=== PATIENT | female | born 1970 | race Caucasian/White ===

== ENCOUNTER 2020-07-29 11:47 | Inpatient (IN) | payer OTHER ==
[~2020-07-29] VITALS: Ht 157.5 cm; Wt 46.5 kg
--- NOTE | 2020-07-29 12:00 | NUR ---
SORE THROAT AND DIFFICULTY SWALLOWING. FOUND TO HAVE ENLARGED THYROID AT [facility] AND TRANSFERRED TO [facility]
--- NOTE | 2020-07-29 12:31 | NUR ---
ERP TO THE BS AT THIS TIME
--- NOTE | 2020-07-29 13:52 | NUR ---
PT TO BE ADMIT AND IS AWARE
--- NOTE | 2020-07-29 14:44 | NUR ---
[facility] TO THE BS
--- NOTE | 2020-07-29 14:59 | NUR ---
ASSUMED CARE OF PATIENT. REPORT GIVEN TO FROM ALEJANDRO KRAUS. [facility] AT BEDSIDE. CALL LIGHT IN PLACE. WILL CONTNIUE TO MONITOR.
[2020-07-29] MEDS ORDERED: POLYETHYLENE GLYCOL 17 GM PACKET PO PRN (15:30)
[2020-07-29] MEDS ORDERED: MELATONIN 5 MG TABLET PO PRN (15:30)
[2020-07-29] MEDS ORDERED: ACETAMINOPHEN 325 MG TABLET PO PRN (15:30)
[2020-07-29] MEDS ORDERED: hydrALAzine 20 MG/ML, 1ML IVPush PRN (15:30)
[2020-07-29] MEDS ORDERED: ONDANSETRON ODT 4 MG PO PRN (15:30)
[2020-07-29] MEDS ORDERED: HYDROcodone/APAP 5/325 TABLET PO PRN (15:30)
[2020-07-29] MEDS ORDERED: DOCUSATE 100 MG CAPSULE PO PRN (15:30)
--- NOTE | 2020-07-29 15:50 | NUR ---
BREAK RN: PT AMBULATED TO BATHROOM. VS STABLE. NO ACUTE DISTRESS NOTED. [facility] IN ROOM. CALL LIGHT IN PLACE. PROSPECTING DRILLER ON. NSR NOTED.
[2020-07-29] MEDS ORDERED: ENOXAPARIN 40 MG/0.4 ML ONE (15:55)
[2020-07-29] MEDS: ENOXAPARIN 40 MG/0.4 ML SQ SCH (16:10)
--- NOTE | 2020-07-29 16:14 | NUR ---
PT TALKING WITH AT BEDSIDE. BINGO MANAGER ON. NSR NOTED. CALL LIGHT IN PLACE. NO ACUTE DISTRESS NOTED. WILL CONTINUE TO MONITOR.
[2020-07-29] MEDS: LACTATED RINGERS 1,000 ML IV SCH (16:27)
[2020-07-29] MEDS ORDERED: IBUPROFEN 600 MG TABLET PO PRN (16:30)
--- NOTE | 2020-07-29 18:01 | NUR ---
CALLED [facility] PROVIDER, VERIFIED DOSE AND MEDICATION: METHIMAZOLE WITH MD. MD WANTS MEDICATION GIVEN.
[2020-07-29] MEDS ORDERED: IODINE PO SCH ×2 (19:00→19:16)
[2020-07-29] MEDS ORDERED: POTASSIUM IODIDE PO SCH ×2 (19:00→19:16)
[2020-07-29 19:39] VITALS: BP 121/79
[2020-07-29 20:06] VITALS: BP 120/78
[2020-07-29 21:05] VITALS: BP 125/78
[2020-07-29] MEDS: PROPRANOLOL 60 MG TABLET PO SCH (21:07)
[2020-07-29] MEDS: CHOLESTYRAMINE LIGHT 4GM PACKET PO SCH (21:08)
[2020-07-30] MEDS: LACTATED RINGERS 1,000 ML IV SCH (00:49)
[2020-07-30] MEDS: PROPRANOLOL 60 MG TABLET PO SCH (03:00)
[2020-07-30 06:03] LABS: BASOPHILS % (AUTO) 0 % (0-1); EOSINOPHILS % (AUTO) 0 % (1-7); LYMPHOCYTES % (AUTO) 11 % (22-44); MEAN CORPUSCULAR HEMOGLOBIN 27.9 pg (27.0-34.8); MEAN CORPUSCULAR HGB CONC 34.1 g/dL (32.4-35.8); MEAN PLATELET VOLUME 10.2 fL (7.4-10.4); MONOCYTES % (AUTO) 9 % (2-9); NEUTROPHILS % (AUTO) 79 % (42-75); PLATELET COUNT 236 x10^3/uL (130-400); RED BLOOD COUNT 4.84 x10^6/uL (3.82-5.3); RED CELL DISTRIBUTION WIDTH 14.1 % (9.6-15.2)
[2020-07-30 06:09] LABS: MD NO
[2020-07-30 06:11] LABS: ALANINE AMINOTRANSFERASE 17 U/L (12-78); ANION GAP 6 mmol/L (5-15); CALCIUM 8.8 mg/dL (8.5-10.1); CHLORIDE 110 mmol/L (98-107)
[2020-07-30 06:22] LABS: ALBUMIN 3.2 g/dL (3.4-5.0); ALKALINE PHOSPHATASE 113 U/L (45-117); BILIRUBIN,TOTAL 0.7 mg/dL (0.2-1.0); CREATININE 0.62 mg/dL (0.55-1.02); FREE T4 (FREE THYROXINE) 2.12 ng/dL (0.76-1.46); TOTAL PROTEIN 6.6 g/dL (6.4-8.2)
[2020-07-30] MEDS: CHOLESTYRAMINE LIGHT 4GM PACKET PO SCH (06:39)
[2020-07-30 07:36] VITALS: BP 112/83
[2020-07-30] MEDS ORDERED: PROPRANOLOL 40 MG TABLET PO SCH (09:00)
[2020-07-30 11:54] VITALS: BP 109/65
[2020-07-30] MEDS: PROPRANOLOl 80 MG CAP.SA.24H PO SCH (11:55)
[2020-07-30 12:13] VITALS: BP 104/66
[2020-07-30] MEDS: ENOXAPARIN 40 MG/0.4 ML SQ SCH (15:19)
[2020-07-30 20:19] VITALS: BP 133/88
[2020-07-30] MEDS ORDERED: LORazepam 0.5MG TABLET PO ONE (22:00)
[2020-07-31 01:49] VITALS: BP 108/68
[2020-07-31 05:46] LABS: BASOPHILS % (AUTO) 1 % (0-1); EOSINOPHILS % (AUTO) 3 % (1-7); LYMPHOCYTES % (AUTO) 39 % (22-44); MEAN CORPUSCULAR HEMOGLOBIN 27.7 pg (27.0-34.8); MEAN CORPUSCULAR HGB CONC 33.6 g/dL (32.4-35.8); MEAN PLATELET VOLUME 10.1 fL (7.4-10.4); MONOCYTES % (AUTO) 11 % (2-9); NEUTROPHILS % (AUTO) 46 % (42-75); PLATELET COUNT 204 x10^3/uL (130-400); RED BLOOD COUNT 4.75 x10^6/uL (3.82-5.3); RED CELL DISTRIBUTION WIDTH 14.4 % (9.6-15.2)
[2020-07-31 05:47] LABS: MD NO
[2020-07-31 05:58] LABS: ALANINE AMINOTRANSFERASE 17 U/L (12-78); ALBUMIN 3.3 g/dL (3.4-5.0); ANION GAP 7 mmol/L (5-15); CALCIUM 8.2 mg/dL (8.5-10.1); CHLORIDE 113 mmol/L (98-107); CREATININE 0.64 mg/dL (0.55-1.02)
[2020-07-31 06:08] LABS: ALKALINE PHOSPHATASE 104 U/L (45-117); BILIRUBIN,TOTAL 0.5 mg/dL (0.2-1.0); FREE T4 (FREE THYROXINE) 1.86 ng/dL (0.76-1.46); TOTAL PROTEIN 6.3 g/dL (6.4-8.2)
[2020-07-31 07:15] VITALS: BP 112/71
[2020-07-31] MEDS ORDERED: PROP80CA3 PO (07:43)
[2020-07-31] MEDS ORDERED: METH10TA6 PO (07:43)
[2020-07-31] MEDS: PROPRANOLOl 80 MG CAP.SA.24H PO SCH (09:42)
== END 2020-07-31 12:51 | disposition home or self-care (01) | DRG 645 ==
LOC: ED 14:14 → EDIP 15:23 → 5SO 19:22 → DCLOUNGE 07-31 12:36
PROVIDERS: ADMIT Family Medicine; ATTEND Family Medicine
DX: E05.00 Thyrotoxicosis with diffuse goiter without thyrotoxic crisis or storm (principal); F41.9 Anxiety disorder, unspecified; H05.20 Unspecified exophthalmos; I10 Essential (primary) hypertension; R13.10 Dysphagia, unspecified; Z87.891 Personal history of nicotine dependence
CPT/HCPCS: 36415; 80053; 83520; 84439; 84443; 84481; 85025; 93005; 99285; G0378; J1650; J7120

== ENCOUNTER 2020-08-07 20:47 | Emergency (ER) | payer MEDICAID, OTHER ==
[~2020-08-07] VITALS: Ht 157.5 cm; Wt 44.2 kg
[~2020-08-07 20:47] MED LIST: METH10TA6 PO; PROP80CA3 PO
--- NOTE | 2020-08-07 21:04 | NUR ---
PT REPORTS IT "FEELS LIKE SOMETHING IS IN MY THROAT AT THE BACK OF MY TONGUE." PT REPORTS RECENTLY BEING DIAGNOSED WITH HYPERTHYROID. DENIES DIFFICULTY SWALLOWING OR BREATHING, NO ABNORMALITIES NOTED ON EXAM AND NOTHING NOTED IN THROAT. PT NAD, RESTING ON GURNEY, APPEARS COMFORTABLE, BED IN LOWEST, CALL LIGHT ON LAP, PLACED ON SPO2/BP MONITORING, SO AT BS. CHAPIN DOMINGUEZ AT BS FOR EVAL AND POC. TM
[2020-08-07] MEDS ORDERED: LORazepam 1MG TABLET ONE (21:17)
--- NOTE | 2020-08-07 21:20 | NUR ---
pt medicated per oct, nad, states "oh wow that time i felt like i almost couldnt swallow that pill", nothing noted in back of throat, wctm. waiting for lab work
[2020-08-07] MEDS ORDERED: LORazepam 1MG TABLET PO ONE (21:30)
[2020-08-07 21:44] LABS: ANION GAP 4 mmol/L (5-15); CHLORIDE 107 mmol/L (98-107); CREATININE 0.79 mg/dL (0.55-1.02)
[2020-08-07 21:46] LABS: BASOPHILS % (AUTO) 1 % (0-1); EOSINOPHILS % (AUTO) 4 % (1-7); LYMPHOCYTES % (AUTO) 25 % (22-44); MD NO; MEAN CORPUSCULAR HEMOGLOBIN 27.7 pg (27.0-34.8); MEAN CORPUSCULAR HGB CONC 34.1 g/dL (32.4-35.8); MEAN PLATELET VOLUME 10.6 fL (7.4-10.4); MONOCYTES % (AUTO) 13 % (2-9); NEUTROPHILS % (AUTO) 58 % (42-75); PLATELET COUNT 244 x10^3/uL (130-400); RED BLOOD COUNT 5.45 x10^6/uL (3.82-5.3); RED CELL DISTRIBUTION WIDTH 14.3 % (9.6-15.2)
[2020-08-07 22:01] VITALS: BP 146/78
--- NOTE | 2020-08-07 22:38 | NUR ---
Patient given discharge instructions and they have confirmed that they understand the instructions. Patient ambulatory with steady gait. nad, all questions answered appropriately. denies additional needs, no personal belongings left in room after dc.
== END 2020-08-07 22:51 | disposition home or self-care (01) ==
LOC: ED 22:00
DX: F41.9 Anxiety disorder, unspecified (principal); F43.9 Reaction to severe stress, unspecified; R06.02 Shortness of breath; I10 Essential (primary) hypertension; E03.9 Hypothyroidism, unspecified
CPT/HCPCS: 36415; 80048; 84439; 84443; 84481; 85025; 99283

== ENCOUNTER 2020-08-14 02:45 | Emergency (ER) | payer MEDICAID ==
[~2020-08-14] VITALS: Ht 157.5 cm; Wt 43.9 kg
[2020-08-14] MEDS ORDERED: LORazepam 1MG TABLET ONE (03:10)
--- NOTE | 2020-08-14 03:16 | NUR ---
THIS RN WENT IN TO MEDICATE PATIENT AND ATTEMPT PO CHALLENGE. PT REFUSING TO DRINK WATER AND STATING "I KNOW I CANT SWALLOW IT, THIS ISNT GOING TO HELP ME". PT CRYING. PT TAKEN TO RADIOLOGY FOR XRAY
[2020-08-14] MEDS ORDERED: LORazepam 2 MG/ML, 1ML IVPush ONE (03:30)
[2020-08-14] MEDS ORDERED: LORazepam 1MG TABLET PO ONE (03:30)
[2020-08-14] MEDS ORDERED: LORazepam 2 MG/ML, 1ML ONE (03:32)
--- NOTE | 2020-08-14 03:46 | NUR ---
PT STATES FEELING A LOT BETTER RIGHT AFTER MEDICATION ADMIN. PT ABLE TO TAKE A COUPLE SIPS OF WATER WITHOUT DIFFICULTY
[2020-08-14 04:17] LABS: FREE T4 (FREE THYROXINE) 1.59 ng/dL (0.76-1.46)
[2020-08-14 04:36] VITALS: BP 107/67
== END 2020-08-14 04:55 | disposition home or self-care (01) ==
LOC: ED 04:26
DX: F41.1 Generalized anxiety disorder (principal); F45.8 Other somatoform disorders; I10 Essential (primary) hypertension; E05.90 Thyrotoxicosis, unspecified without thyrotoxic crisis or storm
CPT/HCPCS: 36415; 70360; 84439; 84443; 84481; 96374; 99284; J2060

== ENCOUNTER 2020-09-01 22:58 | Emergency (ER) | payer SELFPAY ==
[~2020-09-01] VITALS: Ht 157.5 cm; Wt 45.2 kg
[2020-09-01 23:03] VITALS: BP 188/88
--- NOTE | 2020-09-01 23:22 | NUR ---
CC OF SORE THROAT TIMES 1 DAY 5/10 PAIN WORSE OF THE LEFT SIDE. PT DENIES ANY ISSUES WITH SWALLOWING. SO AT EBDSIDE. RESP EVEN AND UNLABORED.
== END 2020-09-02 00:11 | disposition home or self-care (01) ==
LOC: ED 09-02
DX: K02.9 Dental caries, unspecified (principal); E05.00 Thyrotoxicosis with diffuse goiter without thyrotoxic crisis or storm; M54.2 Cervicalgia; I10 Essential (primary) hypertension
CPT/HCPCS: 99283

== ENCOUNTER 2020-09-03 06:26 | Emergency (ER) | payer MEDICAID ==
[~2020-09-03] VITALS: Ht 157.5 cm; Wt 46.6 kg
--- NOTE | 2020-09-03 06:53 | NUR ---
REPORT GIVEN TO OMARI ALLEN
--- NOTE | 2020-09-03 07:00 | NUR ---
assumed care of pt. report from Lizz ALLEN pt here for sternal CP and pain in her throat. pt was seen here previosusly for sore throat pt states that she feels like her throat is swelling, but no difficulty breathing speaking or swallowing. no resp. distress per pt and SO at bedside, pt has had F/U for throat issues and has a "scope" scheduled pt denies N/V. intermittent mild dizziness, no loss or change of vision. no facial droop. MYNOR
--- NOTE | 2020-09-03 07:26 | NUR ---
Kurt DOMINGUEZ has been to bedside for eval lab has been to bedside to draw. CXR at bedside
[2020-09-03] MEDS ORDERED: ASPIRIN 81 MG TABLET CHEW PO ONE (07:30)
[2020-09-03 07:32] LABS: BASOPHILS % (AUTO) 1 % (0-1); EOSINOPHILS % (AUTO) 3 % (1-7); LYMPHOCYTES % (AUTO) 18 % (22-44); MEAN CORPUSCULAR HEMOGLOBIN 28.4 pg (27.0-34.8); MEAN CORPUSCULAR HGB CONC 34.9 g/dL (32.4-35.8); MEAN PLATELET VOLUME 8.9 fL (7.4-10.4); MONOCYTES % (AUTO) 7 % (2-9); NEUTROPHILS % (AUTO) 71 % (42-75); PLATELET COUNT 251 x10^3/uL (130-400); RED BLOOD COUNT 5.23 x10^6/uL (3.82-5.3); RED CELL DISTRIBUTION WIDTH 13.7 % (9.6-15.2)
[2020-09-03] MEDS ORDERED: ASPIRIN 81 MG TABLET CHEW ONE (07:37)
[2020-09-03 07:40] LABS: MD NO
[2020-09-03 07:41] LABS: ALANINE AMINOTRANSFERASE 28 U/L (12-78); ALBUMIN 3.8 g/dL (3.4-5.0); ANION GAP 6 mmol/L (5-15); CALCIUM 8.6 mg/dL (8.5-10.1); CHLORIDE 107 mmol/L (98-107); CREATININE 0.81 mg/dL (0.55-1.02)
[2020-09-03 07:52] LABS: ALKALINE PHOSPHATASE 154 U/L (45-117); BILIRUBIN,TOTAL 0.6 mg/dL (0.2-1.0); TOTAL PROTEIN 7.2 g/dL (6.4-8.2); TROPONIN I < 0.015 ng/mL (0.000-0.045)
[2020-09-03 08:11] LABS: FREE T4 (FREE THYROXINE) 0.71 ng/dL (0.76-1.46)
--- NOTE | 2020-09-03 08:25 | NUR ---
pt ambulated to BR without difficulty
--- NOTE | 2020-09-03 08:51 | NUR ---
at bedside for recheck
--- NOTE | 2020-09-03 09:10 | NUR ---
pt to CT
[2020-09-03] MEDS ORDERED: OMNIPAQUE 350 MG/ML, 100ML BOTTLE ONE (09:27)
--- NOTE | 2020-09-03 09:45 | NUR ---
pt has made requests for PO water. pt advised off NPO status pending CT results
--- NOTE | 2020-09-03 10:00 | NUR ---
no changes. awaiting CT results
--- NOTE | 2020-09-03 10:05 | NUR ---
Dr. Evans at bedside for recheck
[2020-09-03 10:27] VITALS: BP 143/90
== END 2020-09-03 10:31 | disposition home or self-care (01) ==
LOC: ED 06:49
DX: F41.1 Generalized anxiety disorder (principal); F45.8 Other somatoform disorders; R07.89 Other chest pain; M54.2 Cervicalgia; I10 Essential (primary) hypertension; Z86.39 Personal history of other endocrine, nutritional and metabolic disease; E05.90 Thyrotoxicosis, unspecified without thyrotoxic crisis or storm; Z87.891 Personal history of nicotine dependence
CPT/HCPCS: 36415; 70491; 71045; 80053; 84439; 84443; 84481; 84484; 85025; 93005; 99285; Q9967

== ENCOUNTER 2020-09-21 19:08 | Emergency (ER) | payer MEDICAID ==
[~2020-09-21] VITALS: Ht 157.5 cm; Wt 44.1 kg
--- NOTE | 2020-09-21 21:09 | NUR ---
pt in chair with no signs or symptoms of acute distress noted respirations even and unlabored. able to take ordered medications without complication. pt verbalizes appreciation for cares and concern.
[2020-09-21 21:30] VITALS: BP 150/80
== END 2020-09-21 21:34 | disposition home or self-care (01) ==
LOC: ED 21:07
DX: F41.1 Generalized anxiety disorder (principal); I10 Essential (primary) hypertension; K21.9 Gastro-esophageal reflux disease without esophagitis; E05.90 Thyrotoxicosis, unspecified without thyrotoxic crisis or storm; Z86.39 Personal history of other endocrine, nutritional and metabolic disease
CPT/HCPCS: 99283

== ENCOUNTER 2020-10-04 22:40 | Emergency (ER) | payer MEDICAID ==
[~2020-10-04] VITALS: Ht 157.5 cm; Wt 43.0 kg
--- NOTE | 2020-10-04 23:04 | NUR ---
CC OF THROAT TIGHTNESS AND DIFFICULTY SWALLOWING. PT ABLE TO SWALLOW OWN SECRETIONS AND NO DIFFICULTY BREATHING AND ABLE TO TALK IN FULL SENTENCES. PT DENIES PAIN, DESCRIBES BURNING SENSATION. AT BEDSIDE
[2020-10-04] MEDS ORDERED: DEXAMETHASONE 4 MG/ML, 5ML ONE (23:20)
[2020-10-04 23:27] VITALS: BP 161/81
[2020-10-04] MEDS ORDERED: DEXAMETHASONE 4 MG/ML, 1ML PO ONE (23:30)
[2020-10-04 23:35] LABS: T4 (THYROXINE) 4.4 mcg/dL (4.8-13.9)
== END 2020-10-05 00:41 | disposition home or self-care (01) ==
LOC: ED 22:54
DX: J02.8 Acute pharyngitis due to other specified organisms (principal); I10 Essential (primary) hypertension; Z86.39 Personal history of other endocrine, nutritional and metabolic disease
CPT/HCPCS: 36415; 84436; 84481; 99283; J1100